=== PATIENT | male | born 1960 | race Two or more races ===

== ENCOUNTER 2017-07-03 08:14 | Emergency (ER) | payer OTHER ==
[~2017-07-03] VITALS: Ht 167.6 cm; Wt 81.3 kg
[~2017-07-03 08:14] MED LIST: INSU100V13 SQ; LANTUS SQ
[2017-07-03] MEDS ORDERED: normal saline 1000ml 1,000 ML IV ONE (09:25)
[2017-07-03 11:27] VITALS: BP 154/89
== END 2017-07-03 11:32 | disposition home or self-care (01) ==
LOC: ER 08:14
DX: E11.65 Type 2 diabetes mellitus with hyperglycemia (principal); F17.200 Nicotine dependence, unspecified, uncomplicated; Z88.8 Allergy status to other drugs, medicaments and biological substances; Z79.4 Long term (current) use of insulin
CPT/HCPCS: 82948; 96360; 99284; J7030

== ENCOUNTER 2022-04-27 14:01 | Inpatient (IN) | payer OTHER, SELFPAY ==
[~2022-04-27] VITALS: Ht 167.6 cm; Wt 77.3 kg
[2022-04-27] VITALS (9 sets, daily range): BP systolic 119–166; BP diastolic 62–97
[2022-04-27 15:58] LABS: BASOPHILS % (AUTO) 0.3 % (0-1); EOSINOPHILS # (AUTO) 0.2 X10'3 (0-0.9); EOSINOPHILS % (AUTO) 1.1 % (0-6); HEMATOCRIT 42.7 % (42.0-52.0); HEMOGLOBIN 14.7 g/dl (14.0-17.9); LYMPHOCYTES # (AUTO) 0.9 X10'3 (1.1-4.8); LYMPHOCYTES % (AUTO) 5.7 % (21-51); MEAN CORPUSCULAR HEMOGLOBIN 28.2 PG (27.0-31.0); MEAN CORPUSCULAR HGB CONC 34.4 g/dL (33.0-36.5); MEAN PLATELET VOLUME 7.7 FL (7.4-10.4); MONOCYTES # (AUTO) 1.4 X10'3 (0-0.9); MONOCYTES % (AUTO) 9.1 % (2-12); NEUTROPHILS # (AUTO) 12.6 X10'3 (1.8-7.7); NEUTROPHILS % (AUTO) 83.8 % (42-75); PLATELET COUNT 243 X10'3 (140-440); RED BLOOD COUNT 5.21 X10'6 (4.70-6.10); RED CELL DISTRIBUTION WIDTH 13.3 % (11.5-14.5); WHITE BLOOD COUNT 15.1 X10'3 (4.5-11.0)
[2022-04-27 16:09] LABS: ALANINE AMINOTRANSFERASE 20 U/L (12-78); ALBUMIN 3.1 G/DL (3.4-5.0); ALBUMIN/GLOBULIN RATIO 0.7 (1.1-1.5); ALKALINE PHOSPHATASE 112 IU/L (46-116); ANION GAP 9 (8-16); ASPARTATE AMINO TRANSFERASE 14 U/L (10-37); BILIRUBIN,TOTAL 0.3 MG/DL (0.1-1.0); BLOOD UREA NITROGEN 20 MG/DL (7-18); BUN/CREATININE RATIO 21.3 (5.4-32.0); CALCIUM 8.7 MG/DL (8.5-10.1); CHLORIDE 98 MMOL/L (99-107); CREATININE 0.94 MG/DL (0.60-1.10); GLUCOSE 379 MG/DL (70-104); POTASSIUM 4.1 MMOL/L (3.5-5.1); SODIUM 131 MMOL/L (135-145); TOTAL CARBON DIOXIDE 23.9 MMOL/L (24-32); TOTAL PROTEIN 7.3 G/DL (6.4-8.2); eGFR 82 ML/MIN
[2022-04-27] MEDS ORDERED: normal saline 1000ML IV soln IVB ONE (16:30)
[2022-04-27] MEDS ORDERED: iohexol 300mg/ml 100ml inj. ONE (17:01)
[2022-04-27] MEDS ORDERED: HYDROcodone/acetaminophen 5mg/325mg tablet PO ONE (17:05)
[2022-04-27] MEDS ORDERED: vancomycin/NS 1 GM ADD-VANTAGE 250 ML IV ONE (18:40)
[2022-04-27] MEDS ORDERED: mag hydrox/Alum hydrox/simeth 30ml oral suspension PO PRN (19:25)
[2022-04-27] MEDS ORDERED: magnesium Cl slow-release 64mg tablet PO PRN (19:25)
[2022-04-27] MEDS ORDERED: ondansetron/PF 4mg/2ml inj IV PRN ×2 (19:25)
[2022-04-27] MEDS ORDERED: potassium Cl 20 mEq SR tablet PO PRN ×2 (19:25)
[2022-04-27] MEDS ORDERED: morphine 2 MG/ML inj. syringe IV PRN (19:25)
[2022-04-27] MEDS ORDERED: potassium Cl 40MEQ/1/2NS 520ml 520 ML IV PRN (19:25)
[2022-04-27] MEDS ORDERED: magnesium hydroxide 30ml (MOM) UD suspension PO PRN (19:25)
[2022-04-27] MEDS ORDERED: morphine 4 MG/ML inj SYRINge IV PRN (19:25)
[2022-04-27] MEDS ORDERED: meperidine/PF 25mg/ml syringe IV PRN ×2 (19:25)
[2022-04-27] MEDS ORDERED: ringers solution, lacted 1,000 ML IV SCH (19:25)
[2022-04-27] MEDS ORDERED: proCHLORperazine 10 MG/2 ml inj IV PRN (19:25)
[2022-04-27] MEDS ORDERED: magnesium 4gm in 100ml NS 100 ML IV PRN (19:25)
[2022-04-27] MEDS ORDERED: DEXTROSE 15 GM of carb/4 tabs (each vial/BOTTLE has 4 tablets) PO PRN ×2 (19:30)
[2022-04-27] MEDS ORDERED: MESSAGE TO PHARMACY PO ONE (19:30)
[2022-04-27] MEDS ORDERED: glucagon, human recombinant 1mg kit SUBCUT PRN (19:30)
[2022-04-27] MEDS ORDERED: dextrose 50%-water 50ml dispensing syringe IV PRN ×2 (19:30)
[2022-04-27] MEDS ORDERED: sevoflurane 250ml liquid IH ONE (19:44)
[2022-04-27] MEDS ORDERED: FENTANYL CITRATE/PF 50 MCG/1 ML VIAL ONE (19:51)
[2022-04-27] MEDS ORDERED: midazolam 1 mg/ML 2ml injection ONE (19:51)
[2022-04-27] MEDS ORDERED: propofol inj 20 ML IV ONE (19:51)
[2022-04-27] MEDS ORDERED: BUPIVAcaine 0.5% inj/PF 30 ml vial IJ ONE (20:02)
[2022-04-27] MEDS ORDERED: BUPIVAcaine 0.5% inj/PF 30 ML ONE (20:03)
--- NOTE | 2022-04-27 20:25 | NUR ---
Received from OR via SURGICAL BED, accompanied by Anesthesiologist DR GALVEZ and report given by Anesthesiolgist. PT PLACED ON O2 AND MONITOR, S/P I AND D OF SCROTAL ABCESS. GENERAL ANESTH, PT HAS MESH PANTY HOLD GUAZE AND PACKING IN PLACE, CDI, PT DENIES ANY PAIN OR NAUSEA AT THIS TIME WILL CONT TO ASSESS.
[2022-04-27] MEDS: meperidine/PF 25mg/ml syringe IV PRN ×2 (20:42→20:46)
--- NOTE | 2022-04-27 21:05 | NUR ---
Report called to receiving nurse. Transferred via SURGICAL BED TO ROOM 3014B Belongings . Special Issues communicated to receiving nurse.
[2022-04-27] MEDS: K and/or MAG REPLACEMENT MC SCH (22:00)
[2022-04-27] MEDS: normal saline 1000ml 1,000 ML IV SCH (22:06)
[2022-04-27] MEDS: docusate sod 100mg capsule PO SCH (22:55)
[2022-04-27] MEDS: insulin glargine (Lantus) pen - multi-dose SQ SCH (23:01)
[2022-04-28] VITALS (7 sets, daily range): BP systolic 110–137; BP diastolic 59–81
[2022-04-28] MEDS: aztreonam inj. 1,000 MG in normal saline 100ml IV soln 100 ML IV SCH ×3 (00:56→15:21)
[2022-04-28] MEDS: morphine 2 MG/ML inj. syringe IV PRN ×4 (01:03→14:40)
[2022-04-28] MEDS: normal saline 1000ml 1,000 ML IV SCH ×2 (05:15→15:21)
[2022-04-28] MEDS: heparin, porcine 5000 units/ml vial SQ SCH ×2 (07:19→19:53)
[2022-04-28] MEDS: docusate sod 100mg capsule PO SCH ×2 (07:20→19:52)
[2022-04-28] MEDS: vancomycin/NS 1 GM ADD-VANTAGE 250 ML IV SCH ×2 (07:23→23:09)
[2022-04-28 07:43] LABS: BASOPHILS # (AUTO) 0.1 X10'3 (0-0.2); BASOPHILS % (AUTO) 0.4 % (0-1); EOSINOPHILS # (AUTO) 0.3 X10'3 (0-0.9); EOSINOPHILS % (AUTO) 2.8 % (0-6); HEMATOCRIT 38.5 % (42.0-52.0); LYMPHOCYTES # (AUTO) 1.2 X10'3 (1.1-4.8); LYMPHOCYTES % (AUTO) 9.4 % (21-51); MEAN CORPUSCULAR HGB CONC 33.7 g/dL (33.0-36.5); MEAN CORPUSCULAR VOLUME 83.1 FL (78-98); MEAN PLATELET VOLUME 7.8 FL (7.4-10.4); MONOCYTES # (AUTO) 1.1 X10'3 (0-0.9); MONOCYTES % (AUTO) 8.8 % (2-12); NEUTROPHILS # (AUTO) 9.9 X10'3 (1.8-7.7); NEUTROPHILS % (AUTO) 78.6 % (42-75); PLATELET COUNT 218 X10'3 (140-440); RED BLOOD COUNT 4.63 X10'6 (4.70-6.10); RED CELL DISTRIBUTION WIDTH 13.1 % (11.5-14.5); WHITE BLOOD COUNT 12.6 X10'3 (4.5-11.0)
[2022-04-28] MEDS: K and/or MAG REPLACEMENT MC SCH ×2 (08:00→20:00)
[2022-04-28 08:06] LABS: ALANINE AMINOTRANSFERASE 16 U/L (12-78); ALBUMIN 2.6 G/DL (3.4-5.0); ALBUMIN/GLOBULIN RATIO 0.7 (1.1-1.5); ALKALINE PHOSPHATASE 82 IU/L (46-116); ANION GAP 8 (8-16); ASPARTATE AMINO TRANSFERASE 17 U/L (10-37); BILIRUBIN,TOTAL 0.3 MG/DL (0.1-1.0); BLOOD UREA NITROGEN 14 MG/DL (7-18); BUN/CREATININE RATIO 18.9 (5.4-32.0); CALCIUM 8.2 MG/DL (8.5-10.1); CHLORIDE 102 MMOL/L (99-107); CREATININE 0.74 MG/DL (0.60-1.10); GLUCOSE 284 MG/DL (70-104); POTASSIUM 3.9 MMOL/L (3.5-5.1); SODIUM 134 MMOL/L (135-145); TOTAL CARBON DIOXIDE 24.4 MMOL/L (24-32); TOTAL PROTEIN 6.3 G/DL (6.4-8.2); eGFR > 90 ML/MIN
[2022-04-28] MEDS: insulin Lispro (HumaLOG) vial - multi-dose SQ SCH ×3 (09:43→21:49)
--- NOTE | 2022-04-28 14:49 | NUR ---
paged Dr. Alcantara re: Can we get norco for him? pt is still having a lot of pain. he only has morphine ordered but i think he needs some norco and morphine for breakthrough pain.
[2022-04-28] MEDS: HYDROcodone/acetaminophen 5mg/325mg tablet PO PRN ×2 (15:20→19:52)
--- NOTE | 2022-04-28 18:05 | NUR ---
Patient in room PCU 3014. I have received report from Davi MATTHEWS and had the opportunity to ask questions and assume patient care.
[2022-04-28] MEDS: insulin glargine (Lantus) pen - multi-dose SQ SCH (21:48)
[2022-04-29] MEDS: aztreonam inj. 1,000 MG in normal saline 100ml IV soln 100 ML IV SCH ×3 (00:52→16:27)
[2022-04-29] MEDS: normal saline 1000ml 1,000 ML IV SCH ×3 (01:25→21:06)
[2022-04-29] MEDS: HYDROcodone/acetaminophen 10/325mg tab PO PRN ×4 (02:47→18:52)
[2022-04-29 06:00] VITALS: BP 184/91
--- NOTE | 2022-04-29 06:22 | NUR ---
Problems reprioritized. Patient report given, questions answered & plan of care reviewed with Rashmi MATTHEWS.
[2022-04-29] MEDS ORDERED: VANCOMYCIN LEVEL IV ONE (07:30)
[2022-04-29] MEDS: K and/or MAG REPLACEMENT MC SCH ×2 (08:00→20:00)
[2022-04-29] MEDS: docusate sod 100mg capsule PO SCH ×2 (08:34→19:08)
[2022-04-29] MEDS: heparin, porcine 5000 units/ml vial SQ SCH ×2 (08:35→19:15)
[2022-04-29] MEDS: insulin Lispro (HumaLOG) vial - multi-dose SQ SCH ×3 (08:45→19:19)
[2022-04-29 09:48] LABS: BASOPHILS % (AUTO) 0.5 % (0-1); EOSINOPHILS # (AUTO) 0.4 X10'3 (0-0.9); EOSINOPHILS % (AUTO) 3.8 % (0-6); HEMATOCRIT 42.2 % (42.0-52.0); HEMOGLOBIN 14.1 g/dl (14.0-17.9); LYMPHOCYTES # (AUTO) 1.4 X10'3 (1.1-4.8); LYMPHOCYTES % (AUTO) 14.2 % (21-51); MEAN CORPUSCULAR HEMOGLOBIN 27.5 PG (27.0-31.0); MEAN CORPUSCULAR HGB CONC 33.3 g/dL (33.0-36.5); MEAN CORPUSCULAR VOLUME 82.4 FL (78-98); MEAN PLATELET VOLUME 7.9 FL (7.4-10.4); MONOCYTES # (AUTO) 0.8 X10'3 (0-0.9); MONOCYTES % (AUTO) 8.2 % (2-12); NEUTROPHILS # (AUTO) 7.1 X10'3 (1.8-7.7); NEUTROPHILS % (AUTO) 73.3 % (42-75); PLATELET COUNT 238 X10'3 (140-440); RED BLOOD COUNT 5.12 X10'6 (4.70-6.10); RED CELL DISTRIBUTION WIDTH 13.3 % (11.5-14.5); WHITE BLOOD COUNT 9.7 X10'3 (4.5-11.0)
[2022-04-29 10:46] LABS: ALANINE AMINOTRANSFERASE 24 U/L (12-78); ALBUMIN 2.6 G/DL (3.4-5.0); ALBUMIN/GLOBULIN RATIO 0.6 (1.1-1.5); ALKALINE PHOSPHATASE 84 IU/L (46-116); ANION GAP 11 (8-16); ASPARTATE AMINO TRANSFERASE 15 U/L (10-37); BILIRUBIN,TOTAL 0.4 MG/DL (0.1-1.0); BLOOD UREA NITROGEN 10 MG/DL (7-18); BUN/CREATININE RATIO 16.7 (5.4-32.0); CALCIUM 8.6 MG/DL (8.5-10.1); CHLORIDE 97 MMOL/L (99-107); GLUCOSE 235 MG/DL (70-104); MAGNESIUM 1.9 MG/DL (1.5-2.4); POTASSIUM 3.7 MMOL/L (3.5-5.1); SODIUM 130 MMOL/L (135-145); TOTAL PROTEIN 6.7 G/DL (6.4-8.2); eGFR > 90 ML/MIN
[2022-04-29] MEDS ORDERED: VANCOmycin 1250MG/NS 250ml Bag 250 ML IV SCH (11:00)
[2022-04-29] MEDS: morphine 2 MG/ML inj. syringe IV PRN ×2 (14:34→21:12)
[2022-04-29 18:00] VITALS: BP 170/87
--- NOTE | 2022-04-29 18:00 | NUR ---
Problems reprioritized. Patient report given, questions answered & plan of care reviewed with Jacky MATTHEWS, patient stable at transfer of care.
[2022-04-29] MEDS: clindamycin 150mg capsule PO SCH (19:09)
[2022-04-29] MEDS: insulin glargine (Lantus) pen - multi-dose SQ SCH (21:17)
[2022-04-30 02:00] VITALS: BP 168/90
[2022-04-30] MEDS: clindamycin 150mg capsule PO SCH ×3 (02:00→16:02)
[2022-04-30 06:00] VITALS: BP 150/70
[2022-04-30] MEDS: normal saline 1000ml 1,000 ML IV SCH ×2 (06:03→16:15)
--- NOTE | 2022-04-30 06:42 | NUR ---
Patient in room U 3011P. I have received report from Jacky MATTHEWS and had the opportunity to ask questions and assume patient care. Pt is laying on L side of body in bed. Pt is resting comfortably in bed. Pt on RA. No s/s of distress. No s/s of pain at this time. BLL, call light within reach, frequently used items inreach, frequent rounding, audio visual design engineer socks on. Will continue to monitor.
[2022-04-30] MEDS: HYDROcodone/acetaminophen 10/325mg tab PO PRN ×4 (07:17→20:29)
[2022-04-30 07:19] LABS: BASOPHILS % (AUTO) 0.6 % (0-1); EOSINOPHILS # (AUTO) 0.3 X10'3 (0-0.9); EOSINOPHILS % (AUTO) 3.9 % (0-6); HEMATOCRIT 40.1 % (42.0-52.0); HEMOGLOBIN 13.4 g/dl (14.0-17.9); LYMPHOCYTES # (AUTO) 1.7 X10'3 (1.1-4.8); LYMPHOCYTES % (AUTO) 19.2 % (21-51); MEAN CORPUSCULAR HEMOGLOBIN 27.6 PG (27.0-31.0); MEAN CORPUSCULAR HGB CONC 33.4 g/dL (33.0-36.5); MEAN CORPUSCULAR VOLUME 82.7 FL (78-98); MEAN PLATELET VOLUME 7.7 FL (7.4-10.4); MONOCYTES # (AUTO) 0.7 X10'3 (0-0.9); MONOCYTES % (AUTO) 7.9 % (2-12); NEUTROPHILS % (AUTO) 68.4 % (42-75); PLATELET COUNT 273 X10'3 (140-440); RED BLOOD COUNT 4.85 X10'6 (4.70-6.10); RED CELL DISTRIBUTION WIDTH 13.2 % (11.5-14.5); WHITE BLOOD COUNT 8.8 X10'3 (4.5-11.0)
[2022-04-30] MEDS: K and/or MAG REPLACEMENT MC SCH ×2 (08:00→20:00)
[2022-04-30] MEDS: docusate sod 100mg capsule PO SCH ×2 (08:02→20:25)
[2022-04-30] MEDS: heparin, porcine 5000 units/ml vial SQ SCH ×2 (08:03→20:30)
[2022-04-30 08:40] LABS: ALANINE AMINOTRANSFERASE 18 U/L (12-78); ALBUMIN 2.4 G/DL (3.4-5.0); ALBUMIN/GLOBULIN RATIO 0.6 (1.1-1.5); ALKALINE PHOSPHATASE 76 IU/L (46-116); ANION GAP 7 (8-16); ASPARTATE AMINO TRANSFERASE 20 U/L (10-37); BILIRUBIN,TOTAL 0.2 MG/DL (0.1-1.0); BLOOD UREA NITROGEN 12 MG/DL (7-18); BUN/CREATININE RATIO 16.9 (5.4-32.0); CALCIUM 8.3 MG/DL (8.5-10.1); CHLORIDE 101 MMOL/L (99-107); CREATININE 0.71 MG/DL (0.60-1.10); GLUCOSE 177 MG/DL (70-104); MAGNESIUM 1.9 MG/DL (1.5-2.4); POTASSIUM 3.8 MMOL/L (3.5-5.1); SODIUM 134 MMOL/L (135-145); TOTAL CARBON DIOXIDE 25.6 MMOL/L (24-32); TOTAL PROTEIN 6.3 G/DL (6.4-8.2); eGFR > 90 ML/MIN
[2022-04-30 08:41] LABS: HEMOGLOBIN A1C 12.2 % (4.5-6.2)
[2022-04-30 09:13] LABS: PLATELET ESTIMATE NORMAL; TOTAL CELLS COUNTED 100
[2022-04-30] MEDS: insulin Lispro (HumaLOG) vial - multi-dose SQ SCH ×2 (09:52→13:30)
[2022-04-30] MEDS ORDERED: morphine 2 MG/ML inj. syringe IV PRN (11:15)
--- NOTE | 2022-04-30 11:32 | NUR ---
PAGER ID: [phone] MESSAGE: Edwin Centeno [phone] B: Already has a morphine 2mg iv Q2hr. May I dc the Q4 hr order? -Kely EXT [id number]
[2022-04-30 12:00] VITALS: BP 153/70
--- NOTE | 2022-04-30 14:58 | NUR ---
PRESSURE ULCER EDUCATION: DEFINITION: A pressure ulcer is an area of skin that breaks down when you stay in one position too long. The constant pressure against the skin reduces the blood flow to that area and the affected tissue dies. CAUSES: "Being bedridden or in a wheelchair "Fragile skin "Having a chronic condition, such as diabetes or vascular disease "Inability to move certain parts of your body without assistance "Older age "Incontinence of urine or stool SYMPTOMS: "A reddened area that DOES NOT turn white when pressed on - this can be the beginning of a pressure ulcer "A blister, deep sore or a crater - these can be advanced pressure ulcers FIRST AID: "Relieve the pressure on this area "Keep the area clean and dry "Call your primary doctor if you see any of the above symptoms "DO NOT massage the area "DO NOT use a donut shaped or ring shaped pillow- these actually interfere with the blood flow and cause complications PREVENTION: "Check for pressure ulcers everyday "Change position at least every two hours to relieve pressure "Use items that help relieve pressure- pillows, sheepskin, foam padding, and powders. "Keep skin clean and dry "Eat healthy well balanced meals "Exercise daily IF YOU SEE ANY OF THESE SYMPTOMS WHILE IN THE HOSPITAL - TELL YOUR NURSE IMMEDIATELY. IF YOU SEE ANY OF THESE SYMPTOMS WHILE AT HOME OR HAVE ANY QUESTIONS OR CONCERNS ABOUT PRESSURE ULCERS - CALL YOUR PRIMARY DOCTOR IMMEDIATELY. Addendum: 04/30/22 at 1458 by Catarina Wu LVN Amended: Links added.
[2022-04-30 18:00] VITALS: BP 166/88
--- NOTE | 2022-04-30 18:30 | NUR ---
Patient in room PCU 3014. I have received report from jess and had the opportunity to ask questions and assume patient care.
--- NOTE | 2022-04-30 18:33 | NUR ---
Problems reprioritized. Patient report given, questions answered & plan of care reviewed with Emery SELLERS .
[2022-04-30] MEDS: insulin glargine (Lantus) pen - multi-dose SQ SCH (20:22)
[2022-04-30] MEDS ORDERED: VANCOMYCIN LEVEL IV ONE (22:30)
[2022-05-01] MEDS: clindamycin-Cleocin 900mg/D5W 50 ML IV SCH ×3 (00:04→16:11)
[2022-05-01] MEDS: HYDROcodone/acetaminophen 10/325mg tab PO PRN ×6 (00:15→20:27)
[2022-05-01 01:53] VITALS: BP 166/86
[2022-05-01 06:00] VITALS: BP 139/84
[2022-05-01 07:00] LABS: BASOPHILS # (AUTO) 0.1 X10'3 (0-0.2); EOSINOPHILS # (AUTO) 0.4 X10'3 (0-0.9); EOSINOPHILS % (AUTO) 6.4 % (0-6); HEMATOCRIT 40.2 % (42.0-52.0); HEMOGLOBIN 13.7 g/dl (14.0-17.9); LYMPHOCYTES % (AUTO) 29.3 % (21-51); MEAN CORPUSCULAR HEMOGLOBIN 28.2 PG (27.0-31.0); MEAN CORPUSCULAR HGB CONC 34.2 g/dL (33.0-36.5); MEAN CORPUSCULAR VOLUME 82.5 FL (78-98); MEAN PLATELET VOLUME 7.2 FL (7.4-10.4); MONOCYTES # (AUTO) 0.5 X10'3 (0-0.9); MONOCYTES % (AUTO) 6.8 % (2-12); NEUTROPHILS # (AUTO) 3.9 X10'3 (1.8-7.7); NEUTROPHILS % (AUTO) 56.5 % (42-75); PLATELET COUNT 289 X10'3 (140-440); RED BLOOD COUNT 4.87 X10'6 (4.70-6.10); WHITE BLOOD COUNT 6.8 X10'3 (4.5-11.0)
[2022-05-01 07:24] LABS: ALANINE AMINOTRANSFERASE 34 U/L (12-78); ALBUMIN 2.6 G/DL (3.4-5.0); ALBUMIN/GLOBULIN RATIO 0.7 (1.1-1.5); ALKALINE PHOSPHATASE 72 IU/L (46-116); ANION GAP 5 (8-16); ASPARTATE AMINO TRANSFERASE 35 U/L (10-37); BILIRUBIN,TOTAL 0.2 MG/DL (0.1-1.0); BLOOD UREA NITROGEN 13 MG/DL (7-18); BUN/CREATININE RATIO 17.1 (5.4-32.0); CALCIUM 8.6 MG/DL (8.5-10.1); CHLORIDE 99 MMOL/L (99-107); CREATININE 0.76 MG/DL (0.60-1.10); GLUCOSE 158 MG/DL (70-104); POTASSIUM 3.9 MMOL/L (3.5-5.1); SODIUM 132 MMOL/L (135-145); TOTAL CARBON DIOXIDE 28.2 MMOL/L (24-32); TOTAL PROTEIN 6.6 G/DL (6.4-8.2); eGFR > 90 ML/MIN
[2022-05-01] MEDS: docusate sod 100mg capsule PO SCH ×2 (07:42→20:26)
[2022-05-01] MEDS: heparin, porcine 5000 units/ml vial SQ SCH ×2 (07:42→20:26)
[2022-05-01] MEDS: K and/or MAG REPLACEMENT MC SCH ×2 (08:00→20:00)
[2022-05-01] MEDS: insulin Lispro (HumaLOG) vial - multi-dose SQ SCH ×2 (09:37→14:12)
[2022-05-01 11:00] VITALS: BP 127/73
--- NOTE | 2022-05-01 13:58 | NUR ---
Initial: Pt admit for scrotal abscess, currently POD #4 s/p scrotal exploration with I&D of abscess. Pt with sepsis per physician note. Pt on a CHO controlled diet and eating well, documented with 100% PO intake throughout LOS however this only meets 94% EEN and 95% EPN. D/w dietary to send double protein with meals for satiety and additional nutrition. Per EMR pt with T2DM, poorly controlled with A1c 12.2%. Per H&P pt has had DM x 14 years though it has essentially been untreated for 8 years. Noted pt with Lantus and Novolog on home med list. Pt currently documented with severe pain. Pt would benefit from DM education once more appropriate. LBM 05/01, receiving routine bowel care. Will continue to follow. Recommendations: 1) Continue CHO controlled diet 2) Double eggs WB, double meat BIDLD 3) Routine bowel care 4) Weekly scaled weights 5) DM education once appropriate, A1c 12.2% Addendum: 05/01/22 at [address] Amended: Links added.
--- NOTE | 2022-05-01 14:45 | NUR ---
Wound care in for evaluation of right scrotal wound for NPWT per surgeon request. The wound was assessed by the RN JAMES clinical softlines supervisor and it was determined that NPWT would be beneficial in the healing of this wound. The primary RN to the bedside with pain medication per pt. request. The wound was cleansed. NPWT applied using one piece of black foam achieving a seal running at -125mmHg continuous. The pt. tolerated the treatment well. He is able to reposition himself. The bed was left in the lowest position, call light/personal items in reach. Addendum: 05/01/22 at 1504 by Catarina Wu LVN Amended: Links added. Addendum: 05/01/22 at 1522 by Lisbeth Bradford RN In agreement with COMMUNITY EDUCATION [facility]IST [facility] charting
--- NOTE | 2022-05-01 14:46 | NUR ---
WOUND VAC EDUCATION PROVIDED BY WOUND CARE 1. Patient instructed to call the Wound Center or their Home Health Agency immediately if: * They notice a change in the color or amount of the fluid in the canister. * Their wound looks more red than usual or has a foul smell. * The skin around their wound looks reddened or irritated. * The dressing feels loose or appears to be loose. * They experience any increase or changes in their pain. * The alarm will not turn off. 2. Patient instructed that they should not be disconnected from suction for more than 2 hours at a time. * If they are not able to get the suction back on, they need to remove the dressing and take all of the foam out of the wound. * Then moisten sterile gauze with normal saline and place on/in the wound. * Change the dressing once a day until arrangements have been made to replace the wound vac dressing. 3. Patient instructed to turn the wound vac machine OFF and call 911 or go to the ED immediately if their canister fills rapidly with blood. 4. If any of these occur while in the hospital tell a nurse immediately. Addendum: 05/01/22 at 1448 by Catarina Wu LVN Amended: Links added.
[2022-05-01 15:00] VITALS: BP 127/79
[2022-05-01 18:00] VITALS: BP 139/79
[2022-05-01] MEDS: insulin glargine (Lantus) pen - multi-dose SQ SCH (20:35)
[2022-05-02] MEDS: clindamycin-Cleocin 900mg/D5W 50 ML IV SCH ×4 (00:08→23:47)
[2022-05-02] MEDS: HYDROcodone/acetaminophen 10/325mg tab PO PRN ×4 (00:13→17:26)
[2022-05-02 01:44] VITALS: BP 154/85
--- NOTE | 2022-05-02 02:53 | NUR ---
REVIEWED HOME HEALTH PROVIDER ASSESSMENT AND IN AGREEMENT.
[2022-05-02 06:00] VITALS: BP 139/79
[2022-05-02 06:53] LABS: BASOPHILS # (AUTO) 0.1 X10'3 (0-0.2); BASOPHILS % (AUTO) 0.8 % (0-1); EOSINOPHILS # (AUTO) 0.4 X10'3 (0-0.9); EOSINOPHILS % (AUTO) 6.2 % (0-6); HEMATOCRIT 39.8 % (42.0-52.0); HEMOGLOBIN 13.8 g/dl (14.0-17.9); LYMPHOCYTES % (AUTO) 28.3 % (21-51); MEAN CORPUSCULAR HEMOGLOBIN 28.5 PG (27.0-31.0); MEAN CORPUSCULAR HGB CONC 34.8 g/dL (33.0-36.5); MEAN PLATELET VOLUME 7.1 FL (7.4-10.4); MONOCYTES # (AUTO) 0.4 X10'3 (0-0.9); MONOCYTES % (AUTO) 5.7 % (2-12); NEUTROPHILS # (AUTO) 4.2 X10'3 (1.8-7.7); PLATELET COUNT 308 X10'3 (140-440); RED BLOOD COUNT 4.86 X10'6 (4.70-6.10); RED CELL DISTRIBUTION WIDTH 13.2 % (11.5-14.5); WHITE BLOOD COUNT 7.1 X10'3 (4.5-11.0)
[2022-05-02 07:05] LABS: ALANINE AMINOTRANSFERASE 53 U/L (12-78); ALBUMIN 2.8 G/DL (3.4-5.0); ALBUMIN/GLOBULIN RATIO 0.7 (1.1-1.5); ALKALINE PHOSPHATASE 74 IU/L (46-116); ANION GAP 5 (8-16); ASPARTATE AMINO TRANSFERASE 48 U/L (10-37); BILIRUBIN,TOTAL 0.2 MG/DL (0.1-1.0); BLOOD UREA NITROGEN 17 MG/DL (7-18); BUN/CREATININE RATIO 19.8 (5.4-32.0); CALCIUM 8.4 MG/DL (8.5-10.1); CHLORIDE 99 MMOL/L (99-107); CREATININE 0.86 MG/DL (0.60-1.10); GLUCOSE 175 MG/DL (70-104); POTASSIUM 4.1 MMOL/L (3.5-5.1); SODIUM 133 MMOL/L (135-145); TOTAL CARBON DIOXIDE 28.6 MMOL/L (24-32); TOTAL PROTEIN 6.7 G/DL (6.4-8.2); eGFR > 90 ML/MIN
--- NOTE | 2022-05-02 07:19 | NUR ---
Patient in room PCU 3014. I have received report from SAVNANAH MATTHEWS, and had the opportunity to ask questions and assume patient care.
[2022-05-02] MEDS: docusate sod 100mg capsule PO SCH ×2 (07:36→20:12)
[2022-05-02] MEDS: K and/or MAG REPLACEMENT MC SCH ×2 (07:36→20:00)
[2022-05-02] MEDS: heparin, porcine 5000 units/ml vial SQ SCH ×2 (07:37→20:11)
[2022-05-02 07:54] LABS: PLATELET ESTIMATE NORMAL; TOTAL CELLS COUNTED 100
[2022-05-02] MEDS: insulin Lispro (HumaLOG) vial - multi-dose SQ SCH ×3 (09:06→20:05)
[2022-05-02 11:32] VITALS: BP 120/68
[2022-05-02 14:55] VITALS: BP 111/66
--- NOTE | 2022-05-02 16:35 | NUR ---
PAGE SENT PAGER ID: [phone] MESSAGE: [id number], RODRÍGUEZ IVERSON, PT REPORTS NORCO AND MORPHINE INEFFECTIVE. PT ASKS TO TRY TRAMADOL. THANK YOU, IVETTE [id number]
[2022-05-02 18:00] VITALS: BP 140/78
--- NOTE | 2022-05-02 18:37 | NUR ---
Problems reprioritized. Patient report given, questions answered & plan of care reviewed with VERITO ARECHIGA.
[2022-05-02] MEDS: insulin glargine (Lantus) pen - multi-dose SQ SCH (20:09)
[2022-05-03] MEDS: HYDROcodone/acetaminophen 10/325mg tab PO PRN (00:03)
[2022-05-03 01:58] VITALS: BP 131/72
[2022-05-03 06:00] VITALS: BP 117/72
--- NOTE | 2022-05-03 06:44 | NUR ---
Agree with Emery SELLERS except where I documented my findings.
[2022-05-03] MEDS: K and/or MAG REPLACEMENT MC SCH ×2 (08:00→19:01)
[2022-05-03] MEDS: clindamycin-Cleocin 900mg/D5W 50 ML IV SCH ×2 (08:56→16:49)
[2022-05-03] MEDS: oxyCODONE/APAP 10/325mg tablet PO PRN ×4 (08:57→21:33)
[2022-05-03] MEDS: docusate sod 100mg capsule PO SCH ×2 (08:57→19:01)
[2022-05-03] MEDS: heparin, porcine 5000 units/ml vial SQ SCH ×2 (08:58→21:03)
[2022-05-03] MEDS: insulin Lispro (HumaLOG) vial - multi-dose SQ SCH ×4 (09:06→21:17)
[2022-05-03 10:30] VITALS: BP 132/79
[2022-05-03 14:20] VITALS: BP 146/79
--- NOTE | 2022-05-03 14:23 | NUR ---
WOUND VAC EDUCATION PROVIDED BY WOUND CARE 1. Patient instructed to call the Wound Center or their Home Health Agency immediately if: * They notice a change in the color or amount of the fluid in the canister. * Their wound looks more red than usual or has a foul smell. * The skin around their wound looks reddened or irritated. * The dressing feels loose or appears to be loose. * They experience any increase or changes in their pain. * The alarm will not turn off. 2. Patient instructed that they should not be disconnected from suction for more than 2 hours at a time. * If they are not able to get the suction back on, they need to remove the dressing and take all of the foam out of the wound. * Then moisten sterile gauze with normal saline and place on/in the wound. * Change the dressing once a day until arrangements have been made to replace the wound vac dressing. 3. Patient instructed to turn the wound vac machine OFF and call 911 or go to the ED immediately if their canister fills rapidly with blood. 4. If any of these occur while in the hospital tell a nurse immediately. Addendum: 05/03/22 at 1423 by Catarina Wu LVN Amended: Links added.
--- NOTE | 2022-05-03 16:48 | NUR ---
The patient reported stabbing pain of the right posterior scrotal area where NPWT was placed earlier today. It was not relieved by pain medication. NPWT turned down to -75mmHg for which the patient reported immediate relief. Addendum: 05/03/22 at 1651 by Catarina Wu LVN Amended: Links added. Addendum: 05/03/22 at 1707 by Lisbeth Bradford RN RN in agreement with charting.
--- NOTE | 2022-05-03 18:27 | NUR ---
Problems reprioritized. Patient report given, questions answered & plan of care reviewed with BYRON Braxton.
[2022-05-03 19:00] VITALS: BP 151/84
[2022-05-03] MEDS: insulin glargine (Lantus) pen - multi-dose SQ SCH (21:24)
[2022-05-03 22:00] VITALS: BP 132/73
[2022-05-04] MEDS: clindamycin-Cleocin 900mg/D5W 50 ML IV SCH ×3 (00:51→16:06)
[2022-05-04 03:00] VITALS: BP 122/78
[2022-05-04 06:00] VITALS: BP 143/84
--- NOTE | 2022-05-04 06:41 | NUR ---
Patient in room PCU 3014. I have received report from Irais MATTHEWS and had the opportunity to ask questions and assume patient care.
[2022-05-04] MEDS: docusate sod 100mg capsule PO SCH ×2 (08:00→20:00)
[2022-05-04] MEDS: K and/or MAG REPLACEMENT MC SCH ×2 (08:00→20:00)
[2022-05-04] MEDS: heparin, porcine 5000 units/ml vial SQ SCH ×2 (08:02→21:15)
[2022-05-04] MEDS: oxyCODONE/APAP 10/325mg tablet PO PRN ×3 (08:02→21:14)
[2022-05-04] MEDS: insulin Lispro (HumaLOG) vial - multi-dose SQ SCH ×3 (08:10→18:44)
[2022-05-04 10:40] VITALS: BP 136/76
--- NOTE | 2022-05-04 13:14 | NUR ---
F/u: Pt seen at bedside for DM education. Pt declined verbal DM education stating he already knows what to do however accepted written materials. Pt states meals are going well and denies food allergies or difficulty chewing/swallowing. Pt documented with mostly 100% PO intake on CHO controlled diet while receiving double protein TID meeting estimated nutrient needs. Pt provided with RD contact information and encouraged to reach out if needed. LBM 05/03. Will remain available. Recommendations: 1) Continue CHO controlled diet 2) Double eggs WB, double meat BIDLD 3) Routine bowel care 4) Weekly scaled weights Addendum: 05/04/22 at [address] Amended: Links added.
[2022-05-04] MEDS: acetaminophen 325mg tablet PO PRN (15:47)
--- NOTE | 2022-05-04 18:21 | NUR ---
Problems reprioritized. Patient report given, questions answered & plan of care reviewed with Irais MATTHEWS.
[2022-05-04 19:00] VITALS: BP 132/76
[2022-05-04 21:00] VITALS: BP 129/63
[2022-05-04] MEDS: insulin glargine (Lantus) pen - multi-dose SQ SCH (21:26)
[2022-05-05] MEDS: clindamycin-Cleocin 900mg/D5W 50 ML IV SCH ×2 (00:17→08:03)
[2022-05-05 03:00] VITALS: BP 136/69
[2022-05-05 07:00] VITALS: BP 137/76
--- NOTE | 2022-05-05 07:08 | NUR ---
Patient in room PCU 3014. I have received report from Devin MATTHEWS and had the opportunity to ask questions and assume patient care.
[2022-05-05] MEDS: docusate sod 100mg capsule PO SCH ×2 (08:00→20:00)
[2022-05-05] MEDS: K and/or MAG REPLACEMENT MC SCH ×2 (08:00→20:00)
[2022-05-05] MEDS: insulin Lispro (HumaLOG) vial - multi-dose SQ SCH ×3 (09:14→18:43)
[2022-05-05] MEDS: heparin, porcine 5000 units/ml vial SQ SCH ×2 (09:18→21:10)
[2022-05-05] MEDS: oxyCODONE/APAP 10/325mg tablet PO PRN ×2 (09:19→21:08)
[2022-05-05 11:36] VITALS: BP 121/72
[2022-05-05] MEDS: acetaminophen 325mg tablet PO PRN (15:47)
[2022-05-05 16:50] VITALS: BP 139/70
--- NOTE | 2022-05-05 18:12 | NUR ---
Problems reprioritized. Patient report given, questions answered & plan of care reviewed with Irais MATTHEWS.
[2022-05-05 19:00] VITALS: BP 133/75
[2022-05-05] MEDS: clindamycin 150mg capsule PO SCH (21:08)
[2022-05-05] MEDS: insulin glargine (Lantus) pen - multi-dose SQ SCH (21:19)
[2022-05-05 22:00] VITALS: BP 143/73
[2022-05-06] MEDS: clindamycin 150mg capsule PO SCH ×3 (02:58→13:48)
[2022-05-06 03:10] VITALS: BP 146/61
--- NOTE | 2022-05-06 06:40 | NUR ---
Patient in room PCU 3014. I have received report from Irais MATTHEWS and had the opportunity to ask questions and assume patient care.
[2022-05-06 07:08] VITALS: BP 153/85
[2022-05-06] MEDS: K and/or MAG REPLACEMENT MC SCH (08:00)
[2022-05-06] MEDS: docusate sod 100mg capsule PO SCH (08:00)
[2022-05-06] MEDS: insulin Lispro (HumaLOG) vial - multi-dose SQ SCH ×2 (08:37→13:47)
[2022-05-06] MEDS: heparin, porcine 5000 units/ml vial SQ SCH (08:43)
[2022-05-06] MEDS ORDERED: LANTUS SQ (10:32)
[2022-05-06] MEDS ORDERED: AMOX-580 PO (10:32)
[2022-05-06] MEDS ORDERED: INSU100V13 SQ (10:32)
[2022-05-06] MEDS ORDERED: OXYC-145 PO (10:32)
[2022-05-06 11:07] VITALS: BP 148/84
--- NOTE | 2022-05-06 12:08 | NUR ---
PAGER ID: [phone] MESSAGE: Please call me regarding [phone]. Thank you Isaura SELLERS [phone]
--- NOTE | 2022-05-06 14:55 | NUR ---
Patient discharged home with all belongings and discharge instructions. Patient escorted out by nurse to personal car. Patient stable for discharge. IV removed and wound care supplies provided.
== END 2022-05-06 14:55 | disposition home or self-care (01) | DRG 854 ==
LOC: ER 14:01 → PCU 3S 19:26
PROVIDERS: ADMIT Internal Medicine; ATTEND Family Medicine
PROC: 0V953ZZ Drainage of Scrotum, Percutaneous Approach (ICD-10-PCS; 2022-04-27)
PROC: BW2G1ZZ Computerized Tomography (CT Scan) of Pelvic Region using Low Osmolar Contrast (ICD-10-PCS; 2022-04-27)
PROC: 0VB50ZZ Excision of Scrotum, Open Approach (ICD-10-PCS; principal; 2022-04-27 19:44)
DX: A40.0 Sepsis due to streptococcus, group A (principal); E87.1 Hypo-osmolality and hyponatremia; N49.2 Inflammatory disorders of scrotum; E11.65 Type 2 diabetes mellitus with hyperglycemia; Z20.822 Contact with and (suspected) exposure to COVID-19; B95.4 Other streptococcus as the cause of diseases classified elsewhere; E66.9 Obesity, unspecified; Z66 Do not resuscitate; Z79.4 Long term (current) use of insulin; Z87.891 Personal history of nicotine dependence; Z90.49 Acquired absence of other specified parts of digestive tract; Z68.27 Body mass index [BMI] 27.0-27.9, adult; Z88.8 Allergy status to other drugs, medicaments and biological substances; Z79.899 Other long term (current) drug therapy
CPT/HCPCS: 96365; 99285; Z7506; 36415; 72193; 80053; 80202; 82948; 83036; 83735; 84295; 85007; 85025; 87070; 87075; 87077; 87081; 87102; 87186; 87811; 97161; 97530; A4618; A6253; A6258; A6260; A6446; A6449; A6550; A7000; G0378; J1644; J1815; J2175; J2250; J2270; J2405; J2704; J3010; J3370; J3490; J7030; J7040; J7120; Q9967; S0020

== ENCOUNTER 2022-07-07 12:36 | Inpatient (IN) | payer OTHER ==
[2022-07-07] VITALS (11 sets, daily range): BP systolic 93–160; BP diastolic 53–98
[~2022-07-07] VITALS: Ht 167.6 cm; Wt 85.7 kg
[~2022-07-07 12:36] MED LIST changes: +OXYC-145 PO
[2022-07-07] MEDS ORDERED: aspirin 81mg tab.chew PO ONE ×2 (12:55→15:50)
[2022-07-07] MEDS ORDERED: normal saline 1000ML IV soln IVB ONE (12:55)
[2022-07-07] MEDS ORDERED: heparin 10,000 units/1 ML INJ IV ONE ×2 (13:00→13:15)
[2022-07-07 13:01] LABS: BASOPHILS # (AUTO) 0.1 X10'3 (0-0.2); WHITE BLOOD COUNT 13.2 X10'3 (4.5-11.0)
[2022-07-07 13:03] LABS: BASOPHILS % (AUTO) 0.6 % (0-1); EOSINOPHILS % (AUTO) 0.3 % (0-6); HEMATOCRIT 44.8 % (42.0-52.0); LYMPHOCYTES # (AUTO) 1.2 X10'3 (1.1-4.8); LYMPHOCYTES % (AUTO) 8.7 % (21-51); MEAN CORPUSCULAR HGB CONC 33.6 g/dL (33.0-36.5); MEAN CORPUSCULAR VOLUME 83.3 FL (78-98); MONOCYTES # (AUTO) 1.3 X10'3 (0-0.9); MONOCYTES % (AUTO) 10.1 % (2-12); NEUTROPHILS # (AUTO) 10.6 X10'3 (1.8-7.7); NEUTROPHILS % (AUTO) 80.3 % (42-75); PLATELET COUNT 186 X10'3 (140-440); RED BLOOD COUNT 5.38 X10'6 (4.70-6.10); RED CELL DISTRIBUTION WIDTH 14.6 % (11.5-14.5)
[2022-07-07] MEDS ORDERED: nitroGLYCERIN-Tridil 50MG/D5W 250 ML IV PRN (13:03)
[2022-07-07] MEDS ORDERED: fentaNYL/PF 50MCG/1 ML 2ML syringe ONE (13:11)
[2022-07-07] MEDS ORDERED: midazolam 1 mg/ML 2ml injection ONE (13:11)
[2022-07-07] MEDS ORDERED: verapamil 2.5 mg/ml inj IV ONE (13:11)
[2022-07-07] MEDS ORDERED: nitroGLYCERIN-Tridil 50MG/D5W 250 ML IV ONE (13:11)
[2022-07-07] MEDS ORDERED: heparin 25,000 UNIT/250ml bag 0 ML IV ONE (13:11)
[2022-07-07] MEDS ORDERED: LIDOcaine 1% 30ml preserv. free vial ONE (13:12)
[2022-07-07] MEDS ORDERED: heparin 1,000unit/ml 10ml vial 10 ML ONE (13:12)
[2022-07-07] MEDS ORDERED: iohexol 350MG/ML 100ml bottle IV ONE ×2 (13:12→14:18)
[2022-07-07] MEDS: heparin 25,000 UNIT/250ml bag 250 ML IV PRN ×2 (13:16→21:01)
[2022-07-07 13:18] LABS: APTT 33 SECONDS (22-32); D-DIMER 0.22 MG/L FEU (0-0.50)
[2022-07-07 13:21] LABS: ALANINE AMINOTRANSFERASE 50 U/L (12-78); ALBUMIN 3.6 G/DL (3.4-5.0); ALBUMIN/GLOBULIN RATIO 0.9 (1.1-1.5); ALKALINE PHOSPHATASE 68 IU/L (46-116); ANION GAP 8 (8-16); ASPARTATE AMINO TRANSFERASE 203 U/L (10-37); BILIRUBIN,TOTAL 0.7 MG/DL (0.1-1.0); BLOOD UREA NITROGEN 19 MG/DL (7-18); BUN/CREATININE RATIO 19.8 (5.4-32.0); CALCIUM 8.7 MG/DL (8.5-10.1); CHLORIDE 102 MMOL/L (99-107); CREATININE 0.96 MG/DL (0.60-1.10); GLUCOSE 114 MG/DL (70-104); POTASSIUM 3.9 MMOL/L (3.5-5.1); SODIUM 136 MMOL/L (135-145); TOTAL CARBON DIOXIDE 25.8 MMOL/L (24-32); TOTAL PROTEIN 7.5 G/DL (6.4-8.2); eGFR 80 ML/MIN
--- NOTE | 2022-07-07 13:24 | NUR ---
PT TAKEN TO REEL SLITTER. [facility] INFORMED PT GIVEN 324 MG ASA, 4000 UNIT HEPARIN BOLUS AND STARTED ON HEPARIN DRIP AT 1000 UNIT /HR. BELONGINGS WITH PT.
[2022-07-07 13:31] LABS: MAGNESIUM 2.1 MG/DL (1.5-2.4)
[2022-07-07] MEDS ORDERED: tirofiban 12.5mg in NS 250mL 250 ML IV ONE (13:51)
[2022-07-07] MEDS ORDERED: clopidogrel 300mg tablet ONE (14:47)
--- NOTE | 2022-07-07 15:30 | NUR ---
Received pt from [facility]. Report received from BYRON Lan. Pt has arterial sheath to right groin without hematoma, distal dorsus pulses palpable bilaterally. Aggrastat and Heparin gtts infusing into 20 g PIV in left AC.
[2022-07-07] MEDS ORDERED: HYDROcodone/acetaminophen 10/325mg tab PO PRN (15:50)
[2022-07-07] MEDS ORDERED: magnesium hydroxide 30ml (MOM) UD suspension PO PRN (15:50)
[2022-07-07] MEDS ORDERED: acetaminophen 325mg tablet PO PRN ×2 (15:50)
[2022-07-07] MEDS ORDERED: OXAZEpam 15mg capsule PO PRN (15:50)
[2022-07-07] MEDS ORDERED: cyclobenzaprine 10mg tablet PO PRN (15:50)
[2022-07-07] MEDS: tirofiban 12.5mg in NS 250mL IV SCH (16:00)
[2022-07-07] MEDS ORDERED: clopidogrel 300mg tablet PO ONE (16:10)
[2022-07-07] MEDS ORDERED: potassium Cl 20 mEq SR tablet PO STA (16:24)
[2022-07-07] MEDS ORDERED: furosemide 40mg/4ml inj IV ONE (16:25)
--- NOTE | 2022-07-07 16:30 | NUR ---
Pt complaining of new chest pain in left chest he describes as "pressure" 7/10 intensity. Pt states that pain is the same as [place] pain. Abnormal 12 lead ECG showing lateral [place]. Dr Menjivar called. He came to bedside to assess pt. Order for Lasix, KCl replacement and additional IV morphine sulfate obtained.
[2022-07-07 16:36] LABS: ANION GAP 8 (8-16); BLOOD UREA NITROGEN 16 MG/DL (7-18); BUN/CREATININE RATIO 23.9 (5.4-32.0); CALCIUM 8.1 MG/DL (8.5-10.1); CHLORIDE 103 MMOL/L (99-107); CREATININE 0.67 MG/DL (0.60-1.10); GLUCOSE 95 MG/DL (70-104); POTASSIUM 3.7 MMOL/L (3.5-5.1); SODIUM 135 MMOL/L (135-145); TOTAL CARBON DIOXIDE 23.7 MMOL/L (24-32); eGFR > 90 ML/MIN
[2022-07-07] MEDS: HYDROcodone/acetaminophen 10/325mg tab PO PRN (16:48)
[2022-07-07] MEDS: normal saline 1000ml 1,000 ML IV SCH (16:52)
[2022-07-07] MEDS ORDERED: morphine 2 MG/ML inj. syringe IV PRN (17:10)
--- NOTE | 2022-07-07 18:21 | NUR ---
Problems reprioritized. Patient report given, questions answered & plan of care reviewed with BYRON Harris.
[2022-07-07] MEDS ORDERED: glucagon, human recombinant 1mg kit SUBCUT PRN (21:50)
[2022-07-07] MEDS ORDERED: DEXTROSE 15 GM of carb/4 tabs (each vial/BOTTLE has 4 tablets) PO PRN ×2 (21:50)
[2022-07-07] MEDS ORDERED: dextrose 50%-water 50ml dispensing syringe IV PRN ×2 (21:50)
[2022-07-07] MEDS ORDERED: insulin Lispro (HumaLOG) vial - multi-dose SQ SCH (21:50)
[2022-07-07] MEDS ORDERED: MESSAGE TO PHARMACY PO ONE (21:50)
[2022-07-07 22:10] LABS: HEMOGLOBIN A1C 7.1 % (4.5-6.2)
[2022-07-08] VITALS (23 sets, daily range): BP systolic 93–149; BP diastolic 51–85
[2022-07-08] MEDS: HYDROcodone/acetaminophen 10/325mg tab PO PRN ×3 (00:03→18:19)
[2022-07-08] MEDS: tirofiban 12.5mg in NS 250mL IV SCH ×2 (02:39→22:23)
[2022-07-08 03:10] LABS: BASOPHILS # (AUTO) 0.1 X10'3 (0-0.2); BASOPHILS % (AUTO) 0.8 % (0-1); EOSINOPHILS % (AUTO) 0.1 % (0-6); HEMATOCRIT 37.1 % (42.0-52.0); HEMOGLOBIN 12.2 g/dl (14.0-17.9); LYMPHOCYTES # (AUTO) 0.9 X10'3 (1.1-4.8); LYMPHOCYTES % (AUTO) 7.7 % (21-51); MEAN CORPUSCULAR HEMOGLOBIN 27.4 PG (27.0-31.0); MEAN CORPUSCULAR VOLUME 82.9 FL (78-98); MONOCYTES # (AUTO) 1.2 X10'3 (0-0.9); MONOCYTES % (AUTO) 10.2 % (2-12); NEUTROPHILS # (AUTO) 9.7 X10'3 (1.8-7.7); NEUTROPHILS % (AUTO) 81.2 % (42-75); PLATELET COUNT 186 X10'3 (140-440); RED BLOOD COUNT 4.47 X10'6 (4.70-6.10); RED CELL DISTRIBUTION WIDTH 14.7 % (11.5-14.5)
[2022-07-08 03:21] LABS: APTT 55 SECONDS (22-32)
[2022-07-08 03:30] LABS: ALBUMIN 2.8 G/DL (3.4-5.0); ANION GAP 7 (8-16); BLOOD UREA NITROGEN 19 MG/DL (7-18); BUN/CREATININE RATIO 20.9 (5.4-32.0); CHLORIDE 104 MMOL/L (99-107); CHOL/HDL RATIO 3.6 (0.00-4.99); CHOLESTEROL 157 MG/DL (0-200); CREATININE 0.91 MG/DL (0.60-1.10); GLUCOSE 178 MG/DL (70-104); HDL CHOLESTEROL 44 MG/DL (35-60); LDL CHOLESTEROL 70 MG/DL (50-100); POTASSIUM 3.9 MMOL/L (3.5-5.1); SODIUM 135 MMOL/L (135-145); TOTAL CARBON DIOXIDE 23.6 MMOL/L (24-32); TRIGLYCERIDES 219 MG/DL (20-135); eGFR 85 ML/MIN
[2022-07-08] MEDS: atorvastatin 20mg tablet PO SCH (08:55)
[2022-07-08] MEDS: aspirin 325mg tablet PO SCH (08:55)
[2022-07-08] MEDS: metoprolol tartrate 25mg tablet PO SCH (08:56)
[2022-07-08] MEDS: lisinopril 5mg tablet PO SCH (08:56)
[2022-07-08] MEDS: clopidogrel 75mg tablet PO SCH (08:56)
[2022-07-08] MEDS: normal saline 1000ml 1,000 ML IV SCH (11:54)
--- NOTE | 2022-07-08 12:27 | NUR ---
DM Consult: Pt hx DM A1C 7.1% last A1C 12.0% admit DX STEMI now s/p cardiac cath this admit per EMR. Pt uses Novolog sliding scale before meals and Lantus 30 units HS at home per EMR. Would benefit from DM diet ed this admit prior to discharge. Addendum: 07/08/22 at [address] Amended: Links added.
[2022-07-08] MEDS ORDERED: PERFLUTREN PROTEIN-A MICROSPHR (Optison) 0.22 MG/ML 3ML VIAL IV ONE (17:30)
[2022-07-08] MEDS ORDERED: MESSAGE TO PHARMACY PO ONE (17:45)
[2022-07-08] MEDS ORDERED: DEXTROSE 15 GM of carb/4 tabs (each vial/BOTTLE has 4 tablets) PO PRN ×2 (17:45)
[2022-07-08] MEDS ORDERED: insulin Lispro (HumaLOG) vial - multi-dose SQ SCH (17:45)
[2022-07-08] MEDS ORDERED: dextrose 50%-water 50ml dispensing syringe IV PRN ×2 (17:45)
[2022-07-08] MEDS ORDERED: glucagon, human recombinant 1mg kit SUBCUT PRN (17:45)
[2022-07-08] MEDS ORDERED: insulin glargine (Lantus) pen - multi-dose SQ SCH ×2 (21:00)
--- NOTE | 2022-07-08 21:00 | NUR ---
Pt has implanted glucose monitoring. Per pt device BS 273. Pt refused dinner but had fast food brought in by family. No way to measure carbs. Pt refuses accucheck and all insulin at this time despite education. Pt states will go home tomorrow and continue to manage his diabetes "the way he's been doing it." Pt states he knows his body and will let me know if monitoring detects high or low blood sugar. Pt states sometimes he skips coverage at home because he "knows his own body." Addendum: 07/08/22 at 1095 by Kimberly Pearson RN Amended: Links added.
[2022-07-09] VITALS (12 sets, daily range): BP systolic 105–133; BP diastolic 59–78
[2022-07-09 04:52] LABS: BASOPHILS % (AUTO) 0.3 % (0-1); EOSINOPHILS # (AUTO) 0.1 X10'3 (0-0.9); EOSINOPHILS % (AUTO) 1.1 % (0-6); HEMOGLOBIN 12.7 g/dl (14.0-17.9); LYMPHOCYTES # (AUTO) 0.8 X10'3 (1.1-4.8); LYMPHOCYTES % (AUTO) 8.1 % (21-51); MEAN CORPUSCULAR HGB CONC 33.4 g/dL (33.0-36.5); MEAN CORPUSCULAR VOLUME 83.9 FL (78-98); MEAN PLATELET VOLUME 8.3 FL (7.4-10.4); MONOCYTES # (AUTO) 0.8 X10'3 (0-0.9); MONOCYTES % (AUTO) 7.5 % (2-12); NEUTROPHILS # (AUTO) 8.6 X10'3 (1.8-7.7); PLATELET COUNT 185 X10'3 (140-440); RED BLOOD COUNT 4.53 X10'6 (4.70-6.10); RED CELL DISTRIBUTION WIDTH 14.7 % (11.5-14.5); WHITE BLOOD COUNT 10.3 X10'3 (4.5-11.0)
[2022-07-09 05:30] LABS: ALBUMIN 2.5 G/DL (3.4-5.0); ANION GAP 7 (8-16); BLOOD UREA NITROGEN 18 MG/DL (7-18); BUN/CREATININE RATIO 21.4 (5.4-32.0); CALCIUM 8.3 MG/DL (8.5-10.1); CHLORIDE 103 MMOL/L (99-107); CREATININE 0.84 MG/DL (0.60-1.10); GLUCOSE 135 MG/DL (70-104); POTASSIUM 3.6 MMOL/L (3.5-5.1); SODIUM 136 MMOL/L (135-145); TOTAL CARBON DIOXIDE 26.5 MMOL/L (24-32); eGFR > 90 ML/MIN
--- NOTE | 2022-07-09 06:30 | NUR ---
Patient in room CICU 2008. I have received report from lexie and had the opportunity to ask questions and assume patient care.
[2022-07-09] MEDS: aspirin 325mg tablet PO SCH (07:41)
[2022-07-09] MEDS: atorvastatin 20mg tablet PO SCH (07:41)
[2022-07-09] MEDS: lisinopril 5mg tablet PO SCH (07:41)
[2022-07-09] MEDS: clopidogrel 75mg tablet PO SCH (07:41)
[2022-07-09] MEDS: metoprolol tartrate 25mg tablet PO SCH (07:42)
[2022-07-09] MEDS: normal saline 1000ml 1,000 ML IV SCH (07:54)
--- NOTE | 2022-07-09 09:00 | NUR ---
dr solitario in- meds noted for new rx. dr campo to order discharge. pt not wanting us to do accuchecks- using his glucose monitor-170. up without difficulty in room
--- NOTE | 2022-07-09 10:00 | NUR ---
dr campo in- aware of new meds- to write dc orders.
[2022-07-09] MEDS ORDERED: CLOP75TA34 PO (10:45)
[2022-07-09] MEDS ORDERED: LOP25T PO (10:45)
[2022-07-09] MEDS ORDERED: ASPI-1 PO (10:45)
[2022-07-09] MEDS ORDERED: LISI5TAB22 PO (10:45)
[2022-07-09] MEDS ORDERED: ATOR20TA66 PO (10:45)
[2022-07-09] MEDS ORDERED: INSU100V13 SQ (10:45)
[2022-07-09] MEDS ORDERED: LANTUS SQ (10:47)
[2022-07-09] MEDS ORDERED: ACET-1008 PO (10:50)
--- NOTE | 2022-07-09 12:00 | NUR ---
pt questioning payment of new rx- admitting called- rep from medical dept here to answer pt questions. case supervisor here- pt angry about 4$ co pay for plavix- iv already dcd and paperwork given. pt walked out to drive himself home. would not wait for wheelchair
== END 2022-07-09 12:00 | disposition home or self-care (01) | DRG 247 ==
LOC: ER 12:36 → CICU 2S 15:18 → ER 16:26
PROVIDERS: ADMIT Family Medicine; ATTEND Family Medicine
PROC: 4A023N7 Measurement of Cardiac Sampling and Pressure, Left Heart, Percutaneous Approach (ICD-10-PCS; principal; 2022-07-07)
PROC: 027035Z Dilation of Coronary Artery, One Artery with Two Drug-eluting Intraluminal Devices, Percutaneous Approach (ICD-10-PCS; 2022-07-07)
PROC: B2111ZZ Fluoroscopy of Multiple Coronary Arteries using Low Osmolar Contrast (ICD-10-PCS; 2022-07-07)
PROC: B2151ZZ Fluoroscopy of Left Heart using Low Osmolar Contrast (ICD-10-PCS; 2022-07-07)
PROC: 3E033PZ Introduction of Platelet Inhibitor into Peripheral Vein, Percutaneous Approach (ICD-10-PCS; 2022-07-07)
DX: I21.19 ST elevation (STEMI) myocardial infarction involving other coronary artery of inferior wall (principal); E11.40 Type 2 diabetes mellitus with diabetic neuropathy, unspecified; E78.5 Hyperlipidemia, unspecified; E11.65 Type 2 diabetes mellitus with hyperglycemia; F17.210 Nicotine dependence, cigarettes, uncomplicated; I10 Essential (primary) hypertension; Z79.02 Long term (current) use of antithrombotics/antiplatelets; Z79.4 Long term (current) use of insulin; Z82.49 Family history of ischemic heart disease and other diseases of the circulatory system; Z90.49 Acquired absence of other specified parts of digestive tract; Z88.8 Allergy status to other drugs, medicaments and biological substances; Z79.899 Other long term (current) drug therapy; Z71.6 Tobacco abuse counseling
CPT/HCPCS: 36415; 71045; 80048; 80053; 80061; 82948; 83036; 83735; 83880; 84484; 85025; 85347; 85379; 85610; 85730; 93005; 93306; 93458; 96365; 96375; 99152; 99153; 99291; A6213; A6258; A6449; C1725; C1751; C1769; C1874; C1894; C9606; G0378; J1644; J1815; J1940; J2250; J2270; J3010; J3246; J3490; J7030; Q9967

== ENCOUNTER 2022-07-12 12:03 | Observation (INO) | payer OTHER ==
[~2022-07-12] VITALS: Ht 167.6 cm; Wt 86.8 kg
[~2022-07-12 12:03] MED LIST changes: +ACET-1008 PO; +ASPI-1 PO; +ATOR20TA66 PO; +CLOP75TA34 PO; +LISI5TAB22 PO; +LOP25T PO; -OXYC-145 PO
[2022-07-12 12:44] LABS: BASOPHILS # (AUTO) 0.1 X10'3 (0-0.2); EOSINOPHILS # (AUTO) 0.2 X10'3 (0-0.9); EOSINOPHILS % (AUTO) 2.7 % (0-6); HEMATOCRIT 40.6 % (42.0-52.0); HEMOGLOBIN 13.6 g/dl (14.0-17.9); LYMPHOCYTES # (AUTO) 1.2 X10'3 (1.1-4.8); LYMPHOCYTES % (AUTO) 17.1 % (21-51); MEAN CORPUSCULAR HEMOGLOBIN 27.7 PG (27.0-31.0); MEAN CORPUSCULAR HGB CONC 33.5 g/dL (33.0-36.5); MEAN CORPUSCULAR VOLUME 82.7 FL (78-98); MEAN PLATELET VOLUME 7.4 FL (7.4-10.4); MONOCYTES # (AUTO) 0.7 X10'3 (0-0.9); MONOCYTES % (AUTO) 10.4 % (2-12); NEUTROPHILS # (AUTO) 4.7 X10'3 (1.8-7.7); NEUTROPHILS % (AUTO) 68.8 % (42-75); PLATELET COUNT 334 X10'3 (140-440); RED CELL DISTRIBUTION WIDTH 14.5 % (11.5-14.5); WHITE BLOOD COUNT 6.9 X10'3 (4.5-11.0)
[2022-07-12 13:04] LABS: ANION GAP 12 (8-16); BILIRUBIN,TOTAL 0.4 MG/DL (0.1-1.0); BLOOD UREA NITROGEN 19 MG/DL (7-18); BUN/CREATININE RATIO 19.4 (5.4-32.0); CALCIUM 9.2 MG/DL (8.5-10.1); CHLORIDE 102 MMOL/L (99-107); CREATININE 0.98 MG/DL (0.60-1.10); GLUCOSE 160 MG/DL (70-104); POTASSIUM 4.2 MMOL/L (3.5-5.1); SODIUM 139 MMOL/L (135-145); TOTAL CARBON DIOXIDE 25.1 MMOL/L (24-32); eGFR 78 ML/MIN
[2022-07-12 13:05] LABS: ALANINE AMINOTRANSFERASE 56 U/L (12-78); ALBUMIN/GLOBULIN RATIO 0.7 (1.1-1.5); ALKALINE PHOSPHATASE 84 IU/L (46-116); ASPARTATE AMINO TRANSFERASE 35 U/L (10-37); TOTAL PROTEIN 7.6 G/DL (6.4-8.2)
[2022-07-12] MEDS ORDERED: heparin, porcine-25,000 units/D5-250ml premix IV ONE (15:00)
[2022-07-12] MEDS ORDERED: heparin 10,000 units/1 ML INJ ONE (15:00)
[2022-07-12] MEDS ORDERED: morphine 2 MG/ML inj. syringe IV PRN ×3 (15:50→19:25)
[2022-07-12] MEDS ORDERED: iohexol 300mg/ml 100ml inj. ONE (15:55)
[2022-07-12] MEDS ORDERED: oxyCODONE/APAP 5-325mg tablet PO ONE (16:50)
[2022-07-12] MEDS ORDERED: morphine 4 MG/ML inj SYRINge IV ONE (18:00)
[2022-07-12] MEDS ORDERED: ondansetron/PF 4mg/2ml inj IV ONE (18:45)
[2022-07-12] MEDS ORDERED: potassium Cl 20 mEq SR tablet PO PRN ×2 (19:25)
[2022-07-12] MEDS ORDERED: ondansetron/PF 4mg/2ml inj IV PRN (19:25)
[2022-07-12] MEDS ORDERED: mag hydrox/Alum hydrox/simeth 30ml oral suspension PO PRN (19:25)
[2022-07-12] MEDS ORDERED: HYDROcodone/acetaminophen 5mg/325mg tablet PO PRN (19:25)
[2022-07-12] MEDS ORDERED: magnesium 4gm in 100ml NS 100 ML IV PRN (19:25)
[2022-07-12] MEDS ORDERED: potassium Cl 40MEQ/1/2NS 520ml 520 ML IV PRN (19:25)
[2022-07-12] MEDS ORDERED: magnesium hydroxide 30ml (MOM) UD suspension PO PRN (19:25)
[2022-07-12] MEDS ORDERED: acetaminophen 325mg tablet PO PRN ×3 (19:25→19:30)
[2022-07-12] MEDS ORDERED: magnesium Cl slow-release 64mg tablet PO PRN (19:25)
[2022-07-12] MEDS ORDERED: dextrose 50%-water 50ml dispensing syringe IV PRN ×2 (19:35)
[2022-07-12] MEDS ORDERED: MESSAGE TO PHARMACY PO ONE (19:35)
[2022-07-12] MEDS ORDERED: glucagon, human recombinant 1mg kit SUBCUT PRN (19:35)
[2022-07-12] MEDS ORDERED: DEXTROSE 15 GM of carb/4 tabs (each vial/BOTTLE has 4 tablets) PO PRN ×2 (19:35)
[2022-07-12] MEDS ORDERED: insulin Lispro (HumaLOG) vial - multi-dose SQ SCH (19:35)
[2022-07-12] MEDS: docusate sod 100mg capsule PO SCH (20:00)
[2022-07-12 21:00] VITALS: BP 134/71
[2022-07-12] MEDS ORDERED: insulin glargine (Lantus) pen - multi-dose SQ SCH (21:00)
[2022-07-12] MEDS ORDERED: temazepam 15mg capsule PO PRN (21:00)
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
[2022-07-12] MEDS: HYDROcodone/acetaminophen 10/325mg tab PO PRN (22:14)
[2022-07-12] MEDS: normal saline 1000ml 1,000 ML IV SCH ×2 (22:30→22:31)
[2022-07-13 02:47] VITALS: BP 110/55
--- NOTE | 2022-07-13 06:38 | NUR ---
Patient in room PCU 3014. I have received report from Radha RN and had the opportunity to ask questions and assume patient care. Pt requesting pain meds for left rib fx. Principal Engineer will follow up with request
[2022-07-13 07:00] VITALS: BP 96/55
[2022-07-13 07:01] LABS: BASOPHILS # (AUTO) 0.1 X10'3 (0-0.2); EOSINOPHILS # (AUTO) 0.4 X10'3 (0-0.9); EOSINOPHILS % (AUTO) 6.3 % (0-6); HEMATOCRIT 41.2 % (42.0-52.0); HEMOGLOBIN 13.8 g/dl (14.0-17.9); LYMPHOCYTES # (AUTO) 1.5 X10'3 (1.1-4.8); MEAN CORPUSCULAR HEMOGLOBIN 27.9 PG (27.0-31.0); MEAN CORPUSCULAR HGB CONC 33.6 g/dL (33.0-36.5); MEAN PLATELET VOLUME 7.3 FL (7.4-10.4); MONOCYTES # (AUTO) 0.7 X10'3 (0-0.9); MONOCYTES % (AUTO) 11.1 % (2-12); NEUTROPHILS # (AUTO) 3.6 X10'3 (1.8-7.7); NEUTROPHILS % (AUTO) 57.6 % (42-75); PLATELET COUNT 346 X10'3 (140-440); RED BLOOD COUNT 4.96 X10'6 (4.70-6.10); RED CELL DISTRIBUTION WIDTH 14.5 % (11.5-14.5); WHITE BLOOD COUNT 6.3 X10'3 (4.5-11.0)
[2022-07-13] MEDS: HYDROcodone/acetaminophen 10/325mg tab PO PRN (07:04)
--- NOTE | 2022-07-13 07:18 | NUR ---
Paged. Page Sent PAGER ID: [phone] MESSAGE: [id number]- Jacobo. Pt easily agitated this morning. Pt reporting pain 12/12, provided norco . Requests Percocet . Request Atorvastatin to be switch to Hs. Requesting to talk to you during rounds. Cristhian Alford LVN
[2022-07-13 07:27] LABS: ALANINE AMINOTRANSFERASE 46 U/L (12-78); ALBUMIN 2.9 G/DL (3.4-5.0); ALBUMIN/GLOBULIN RATIO 0.7 (1.1-1.5); ALKALINE PHOSPHATASE 74 IU/L (46-116); ANION GAP 8 (8-16); ASPARTATE AMINO TRANSFERASE 30 U/L (10-37); BILIRUBIN,TOTAL 0.4 MG/DL (0.1-1.0); BLOOD UREA NITROGEN 19 MG/DL (7-18); BUN/CREATININE RATIO 19.4 (5.4-32.0); CALCIUM 9.2 MG/DL (8.5-10.1); CHLORIDE 104 MMOL/L (99-107); CREATININE 0.98 MG/DL (0.60-1.10); GLUCOSE 141 MG/DL (70-104); POTASSIUM 4.1 MMOL/L (3.5-5.1); SODIUM 140 MMOL/L (135-145); TOTAL CARBON DIOXIDE 28.1 MMOL/L (24-32); TOTAL PROTEIN 7.3 G/DL (6.4-8.2); eGFR 78 ML/MIN
[2022-07-13] MEDS ORDERED: atorvastatin 20mg tablet PO SCH ×2 (08:00→21:00)
[2022-07-13] MEDS: docusate sod 100mg capsule PO SCH (08:00)
[2022-07-13] MEDS ORDERED: metoprolol tartrate 25mg tablet PO SCH (08:00)
[2022-07-13] MEDS ORDERED: lisinopril 5mg tablet PO SCH (08:00)
[2022-07-13] MEDS ORDERED: clopidogrel 75mg tablet PO SCH (08:00)
--- NOTE | 2022-07-13 08:00 | NUR ---
Pt encouraged to practice taking deep breaths, pt verbalized understanding Addendum: 07/13/22 at 1721 by Yury Alford LVN Amended: Links added.
[2022-07-13] MEDS ORDERED: aspirin 325mg tablet PO SCH (08:30)
--- NOTE | 2022-07-13 08:42 | NUR ---
Paged Page Sent promotional table spacer PAGER ID: [phone] MESSAGE: [id number]- Jacobo.left rib fx. Pt reporting pain 12/12, norco 10/325 ineffective. States Morphine has been ineffective. Requests Dwarf 10/325mg x 2 tab. Request Atorvastatin to Hs instead of am. wants to speak with you at rounds. Cristhian Alford LVN
[2022-07-13] MEDS ORDERED: HYDROmorphone 1 mg/ml syringe IV PRN (08:55)
[2022-07-13] MEDS ORDERED: oxyCODONE/APAP 5-325mg tablet PO PRN (08:55)
[2022-07-13] MEDS ORDERED: oxyCODONE/APAP 10/325mg tablet PO PRN (08:55)
[2022-07-13] MEDS ORDERED: HYDROmorphone inj. 0.5 MG/0.5 ML DISP.SYRIN IV PRN (08:55)
[2022-07-13 11:00] VITALS: BP 103/59
[2022-07-13] MEDS ORDERED: HYDR-3972 PO (13:01)
--- NOTE | 2022-07-13 17:22 | NUR ---
All written and verbal instructions provided to patient. All questions answered. Pt PIV discontinued. Pt telebox discontinued. Pt's sister came to cone picker patient. Pt collected all belongings including wallet, cellphone, car keys, and clothing. Pt ambulated to sister's vehicle via wheelchair. Addendum: 07/13/22 at 1725 by Yury Alford LVN Amended: Links added.
--- NOTE | 2022-07-13 17:25 | NUR ---
I AGREE WITH FERDINAND DIRT SHOVELER ASSESSMENT.
[2022-07-14] MEDS ORDERED: aspirin 81mg tab.chew PO SCH (08:30)
[2022-07-14] MEDS ORDERED: HYDR-3972 PO (11:55)
== END 2022-07-13 17:05 | disposition home or self-care (01) ==
LOC: ER 12:04 → ED HOLD 19:30 → PCU 3S 21:28
PROVIDERS: ADMIT Internal Medicine; ATTEND Family Medicine
DX: S22.32XA Fracture of one rib, left side, initial encounter for closed fracture (principal); S27.1XXA Traumatic hemothorax, initial encounter; J90 Pleural effusion, not elsewhere classified; I25.10 Atherosclerotic heart disease of native coronary artery without angina pectoris; E11.65 Type 2 diabetes mellitus with hyperglycemia; I21.A1 Myocardial infarction type 2; D68.9 Coagulation defect, unspecified; V48.5XXA Car driver injured in noncollision transport accident in traffic accident, initial encounter; Y93.89 Activity, other specified; Y92.410 Unspecified street and highway as the place of occurrence of the external cause; Z79.02 Long term (current) use of antithrombotics/antiplatelets; Z79.899 Other long term (current) drug therapy; Z79.4 Long term (current) use of insulin
CPT/HCPCS: 36415; 71045; 74177; 80053; 82948; 83880; 84484; 85025; 85610; 87081; 93005; 93308; 96361; 96372; 96374; 96375; 99285; G0378; J1644; J1815; J2270; J2405; J3490; J7030; Q9967

== ENCOUNTER 2022-08-09 13:42 | Emergency (ER) | payer MEDICAID ==
[~2022-08-09] VITALS: Ht 167.6 cm; Wt 80.0 kg
[~2022-08-09 13:42] MED LIST changes: -ACET-1008 PO; +HYDR-3972 PO
[2022-08-09 14:01] LABS: BASOPHILS # (AUTO) 0.1 X10'3 (0-0.2); BASOPHILS % (AUTO) 0.9 % (0-1); EOSINOPHILS # (AUTO) 0.3 X10'3 (0-0.9); HEMATOCRIT 43.7 % (42.0-52.0); HEMOGLOBIN 14.5 g/dl (14.0-17.9); LYMPHOCYTES # (AUTO) 1.4 X10'3 (1.1-4.8); LYMPHOCYTES % (AUTO) 25.4 % (21-51); MEAN CORPUSCULAR HEMOGLOBIN 27.2 PG (27.0-31.0); MEAN CORPUSCULAR HGB CONC 33.3 g/dL (33.0-36.5); MEAN CORPUSCULAR VOLUME 81.6 FL (78-98); MEAN PLATELET VOLUME 8.3 FL (7.4-10.4); MONOCYTES # (AUTO) 0.4 X10'3 (0-0.9); NEUTROPHILS # (AUTO) 3.3 X10'3 (1.8-7.7); NEUTROPHILS % (AUTO) 60.7 % (42-75); PLATELET COUNT 173 X10'3 (140-440); RED BLOOD COUNT 5.35 X10'6 (4.70-6.10); RED CELL DISTRIBUTION WIDTH 14.1 % (11.5-14.5); WHITE BLOOD COUNT 5.5 X10'3 (4.5-11.0)
[2022-08-09 14:14] LABS: ALANINE AMINOTRANSFERASE 32 U/L (12-78); ALBUMIN 3.7 G/DL (3.4-5.0); ALBUMIN/GLOBULIN RATIO 1.1 (1.1-1.5); ALKALINE PHOSPHATASE 111 IU/L (46-116); ANION GAP 8 (8-16); ASPARTATE AMINO TRANSFERASE 19 U/L (10-37); BILIRUBIN,TOTAL 0.3 MG/DL (0.1-1.0); BLOOD UREA NITROGEN 23 MG/DL (7-18); BUN/CREATININE RATIO 29.9 (10.0-20.0); CALCIUM 8.9 MG/DL (8.5-10.1); CHLORIDE 109 MMOL/L (99-107); CREATININE 0.77 MG/DL (0.60-1.10); GLUCOSE 123 MG/DL (70-104); SODIUM 141 MMOL/L (135-145); TOTAL CARBON DIOXIDE 24.1 MMOL/L (24-32); TOTAL PROTEIN 7.2 G/DL (6.4-8.2); eGFR > 90 ML/MIN
[2022-08-09 15:57] VITALS: BP 115/76
== END 2022-08-09 20:00 | disposition left against medical advice (07) ==
LOC: ER 13:43
DX: R06.02 Shortness of breath (principal); R07.89 Other chest pain; Z53.21 Procedure and treatment not carried out due to patient leaving prior to being seen by health care provider
CPT/HCPCS: 36415; 71045; 80053; 83880; 84484; 85025; 93005; 99281

== ENCOUNTER 2024-01-20 18:04 | Emergency (ER) | payer MEDICAID ==
[~2024-01-20] VITALS: Ht 167.6 cm; Wt 83.6 kg
[~2024-01-20 18:04] MED LIST changes: -LANTUS SQ
[2024-01-20 18:31] VITALS: BP 146/84; PULSE 76; RESP 18; TEMP 98.4; O2SAT 97
[2024-01-20 18:47] LABS: BASOPHILS # (AUTO) 0.1 X10'3 (0-0.2); BASOPHILS % (AUTO) 0.8 % (0-1); EOSINOPHILS # (AUTO) 0.1 X10'3 (0-0.9); EOSINOPHILS % (AUTO) 2.2 % (0-6); HEMATOCRIT 41.2 % (42.0-52.0); HEMOGLOBIN 13.9 g/dl (14.0-17.9); LYMPHOCYTES # (AUTO) 1.3 X10'3 (1.1-4.8); LYMPHOCYTES % (AUTO) 19.9 % (21-51); MEAN CORPUSCULAR HEMOGLOBIN 28.2 PG (27.0-31.0); MEAN CORPUSCULAR HGB CONC 33.8 g/dL (33.0-36.5); MEAN CORPUSCULAR VOLUME 83.4 FL (78-98); MEAN PLATELET VOLUME 8.6 FL (7.4-10.4); MONOCYTES # (AUTO) 0.3 X10'3 (0-0.9); MONOCYTES % (AUTO) 4.9 % (2-12); NEUTROPHILS # (AUTO) 4.8 X10'3 (1.8-7.7); NEUTROPHILS % (AUTO) 72.2 % (42-75); PLATELET COUNT 189 X10'3 (140-440); RED BLOOD COUNT 4.94 X10'6 (4.70-6.10); RED CELL DISTRIBUTION WIDTH 15.7 % (11.5-14.5); WHITE BLOOD COUNT 6.7 X10'3 (4.5-11.0)
[2024-01-20 19:00] LABS: ANION GAP 11 (8-16); BLOOD UREA NITROGEN 27 MG/DL (7-18); BUN/CREATININE RATIO 28.4 (10.0-20.0); CALCIUM 8.5 MG/DL (8.5-10.1); CHLORIDE 107 MMOL/L (99-107); CREATININE 0.95 MG/DL (0.60-1.10); PRO BRAIN NATRIURETIC PEPTIDE 190 PG/ML (0-125); SODIUM 142 MMOL/L (135-145); TOTAL CARBON DIOXIDE 24.4 MMOL/L (24-32); eCRCL 74 ML/MIN; eGFR 81 ML/MIN
[2024-01-20 19:01] LABS: GLUCOSE 209 MG/DL (70-104); POTASSIUM 4.2 MMOL/L (3.5-5.1)
[2024-01-20 20:20] LABS: ALANINE AMINOTRANSFERASE 30 U/L (12-78); ALBUMIN 4.2 G/DL (3.4-5.0); ALBUMIN/GLOBULIN RATIO 1.4 (1.1-1.5); ALKALINE PHOSPHATASE 134 IU/L (46-116); ANION GAP 10 (8-16); ASPARTATE AMINO TRANSFERASE 16 U/L (10-37); BILIRUBIN,TOTAL 0.4 MG/DL (0.1-1.0); BLOOD UREA NITROGEN 27 MG/DL (7-18); BUN/CREATININE RATIO 29.3 (10.0-20.0); CHLORIDE 107 MMOL/L (99-107); CREATININE 0.92 MG/DL (0.60-1.10); GLUCOSE 199 MG/DL (70-104); POTASSIUM 4.1 MMOL/L (3.5-5.1); SODIUM 143 MMOL/L (135-145); TOTAL PROTEIN 7.3 G/DL (6.4-8.2); eCRCL 76 ML/MIN; eGFR 84 ML/MIN
== END 2024-01-20 22:23 | disposition left against medical advice (07) ==
LOC: ER 18:05
DX: R07.9 Chest pain, unspecified (principal); Z53.21 Procedure and treatment not carried out due to patient leaving prior to being seen by health care provider
CPT/HCPCS: 36415; 71045; 80048; 80053; 83880; 84484; 85025; 93005